=== PATIENT | male | born 1965 | race Two or more races ===

== ENCOUNTER 2021-05-01 08:27 | Emergency (ER) | payer MEDICAID, SELFPAY ==
[2021-05-01 08:50] VITALS: BP 161/80; PULSE 79; RESP 18; O2SAT 95; BMI 22.5
--- NOTE | 2021-05-01 09:01 | ED_ITS ---
HPI - General Adult General Chief complaint: General Medical Stated complaint: finger injury Time Seen by Provider: 05/01/21 08:51 Source: patient Mode of arrival: ambulatory History of Present Illness HPI narrative: 55-year-old male with past medical history of ADD, prior knee surgery, presenting complaining of right 4th digit pain, acute on chronic right knee pain, and right low back/ buttock pain radiating down RLE x months/years. D enies known injury/trauma or fall. Reports finger gets stiff/stuck, worse with ROM. Denies fever, chills, numbness, tingling, weakness, urinary incontinence/retention Onset (ago): day(s) Related Data Previous Rx's Medication Instructions Recorded acetaminophen 500 mg tablet 500 mg PO Q6H PRN #20 tab 05/01/21 (Tylenol Extra Strength) cyclobenzaprine 5 mg tablet 5 mg PO Q8H PRN 5 Days #14 tab 05/01/21 lidocaine 5 % topical patch 1 patch TOPICAL DAILY PRN #30 ea 05/01/21 (Lidoderm) MDD remove after 12 hours naproxen 500 mg tablet 500 mg PO BID PRN 10 Days #20 tab 05/01/21 Allergies Allergy/AdvReac Type Severity Reaction Status Date / Time No Known Allergies Allergy Verified 05/01/21 09:00 Review of Systems Review of Systems: Constitutional: No Fever, No Chills ENT/Mouth: No Ear Pain, No Nasal Congestion, No sore throat, No Rhinorrhea Cardiovascular: No Chest Pain, No SOB Respiratory: No Cough, No Sputum Gastrointestinal: No Nausea, No Vomiting, No Diarrhea, No Constipation, No Abdominal pain Genitourinary:, No Dysuria, No Urinary Frequency, No Hematuria, No Urinary Incontinence, No Urgency, No Flank Pain Musculoskeletal: + joint pain, + Myalgias, No Joint Swelling Skin: No Skin Lesions, No rash Neuro: No Weakness, No Numbness, + Paresthesias Yes all other systems are reviewed and are negative Neurologic: Denies Sensory deficit (Neuro) [facility] Past Medical History Attestation statement: The following information was validated with the patient. Medical History ADHD Surgical History H/O: knee surgery Social History Social History Advance Directives: No Advance Directives Information Provided: No Physical Exam Vital Signs: Vital Signs: Last Vital Signs Pulse 79 05/01/21 08:50 Resp 18 05/01/21 08:50 BP 161/80 H 05/01/21 08:50 Pulse Ox 95 05/01/21 08:50 BMI result Body Mass Index 22.5 Const: General: cooperative, healthy appearing and no acute distress Orientation/consciousness: patient oriented x3 Limitations: no limitations HENMT: Head: Yes normal to inspection Ears: hearing grossly normal bilaterally General nose exam: Normal external nose present Face and sinus: Yes normal facial exam Eyes: General: appearance normal, both eyes and all related structures EOM: EOMs intact bilaterally Neck: Neck: Yes normal visual inspection Resp: Effort & Inspection: normal respiratory effort and no respiratory distress Auscultation: clear to auscultation bilaterally Cardio: Rate: regular rate Heart sounds: S1 normal heart sound present and S2 normal heart sound present Peripheral pulses: radial pulses present and dorsalis pedis present GI: Inspection: Yes normal to inspection Palpation (GI): Soft to palpation and nontender : General: Yes no CVA tenderness Back/Spine/Pelvis: Other: No midline thoracic also lumbar spinous tenderness. Right buttock tenderness to palpation Back: no CVA tenderness Skin: Rashes: no rashes Wounds: no wounds Neuro: Other: Strength intact throughout. No saddle anesthesia. General: patient oriented x3, gait normal, tone normal, moves all extremities and no focal motor deficits Gait exam (Neuro): Normal gait present Motor exam (neuro): 5/5 motor strength present throughout Sensory Exam: No Sensory deficit (Neuro) Extrem: Other: Small hard cyst/callus to MCP of right ring finger palmar aspect. Full range of motion intact. [id number] opposition intact. An be intact. Right knee nontender. Old surgical scar noted without infection. NV intact distally. FROM intact General: Yes capillary refill normal and Yes normal gait Medical Decision Making MDM Narrative Medical decision making narrative: 55-year-old male with past medical history of ADD, prior knee surgery, pr esenting complaining of right 4th digit pain, acute on chronic right knee pain, and right low back/ buttock pain radiating down RLE x months/years. On exam vital signs stable, NAD/nontoxic-appearing, physical exam as above. No midline spinous tenderness throughout. No red flag symptoms. Finger pain consistent with early trigger finger. Back pain most consistent with sciatica/neuropathy. Low concern for cord compression/fracture or cauda equina. will have patient follow-up with Orthopedics/PCP Medical Records Medical records reviewed: Yes I reviewed the patient's medical records. Lab Data Lab results reviewed: Yes I reviewed the patient's lab results. Discharge Plan Discharge Clinical Impression: Trigger finger, Sciatica Patient Disposition: Home, Self-Care Instructions: Acute Low Back Pain (ED), Trigger Finger (ED) Additional Instructions: You need to follow-up with orthopedics and your primary care doctor Your pain is likely musculoskeletal Flexeril is a muscle relaxer, take at night as it makes you drowsy, do not drive, drink alcohol, or operate machinery while taking it Naproxen as an anti-inflammatory / pain medication, take with food Lidoderm patches are numbing patches, apply to painful area In addition take Tylenol at home If symptoms persist or worsen, pain becomes unbearable, you developed urinary retention or incontinence, or weakness return to the ED Prescriptions: New acetaminophen [Tylenol Extra Strength] 500 mg tablet 500 mg PO Q6H PRN (Reason: pain or fever) Qty: 20 0RF lidocaine [Lidoderm] 5 % adhesive patch,medicated 1 patch topical DAILY MDD remove after 12 hours PRN (Reason: pain) Qty: 30 0RF Rx Instructions: leave on most painful area for up to 12 hrs naproxen 500 mg tablet 500 mg PO BID PRN (Reason: pain) 10 Days Qty: 20 0RF cyclobenzaprine 5 mg tablet 5 mg PO Q8H PRN (Reason: pain (scale score 7-10)) 5 Days Qty: 14 0RF Referrals: Nikita Ventura MD [Physician] - 1 week Physician,None [Primary Care Provider] - 2 days
[2021-05-01] MEDS: Ketorolac Tromethamine 30 MG/ML VIAL IM (09:08)
== END 2021-05-01 09:33 | disposition home or self-care (01) ==
PROVIDERS: Emergency Provider Emergency Medicine
DX: M65.341 Trigger finger, right ring finger (principal); M54.41 Lumbago with sciatica, right side
CPT/HCPCS: 96372; 99284; J1885

== ENCOUNTER → 2021-05-17 07:57 | Outpatient (BNVA) | payer MEDICAID, SELFPAY | PROVIDERS: Visit Provider Orthopaedic Surgery | DX: M65.341 Trigger finger, right ring finger (principal); M67.40 Ganglion, unspecified site | CPT/HCPCS: 20550; 99202; J1100 ==

== ENCOUNTER → 2021-06-14 11:11 | Outpatient (BNVA) | payer MEDICAID, SELFPAY | PROVIDERS: Visit Provider Orthopaedic Surgery | DX: Z01.810 Encounter for preprocedural cardiovascular examination (principal); M79.89 Other specified soft tissue disorders; M67.40 Ganglion, unspecified site; M65.341 Trigger finger, right ring finger | CPT/HCPCS: 99212 ==